=== PATIENT | female | born 1995 | race Caucasian/White ===

== ENCOUNTER 2018-06-30 12:25 | Emergency (ER) | payer OTHER ==
[2018-06-30 13:38] LABS: BASO # 0.1 10^3/uL (0.0-0.2); BASO % 0.7 % (0.0-1.0); EOS # 0.5 10^3/uL (0.0-0.50); EOS % 6.6 % (0.0-3.0); HEMATOCRIT 40.2 % (36.0-47.0); IMMATURE GRANULOCYTE % 0.3 % (0-3.0); LYMPH # 1.6 10^3/uL (1.5-6.5); MEAN CORPUSCULAR HEMOGLOBIN 27.4 pg (27.0-33.0); MEAN CORPUSCULAR HGB CONC 32.3 g/dl (32.0-36.5); MEAN CORPUSCULAR VOLUME 84.6 fl (80.0-96.0); MONO # 0.5 10^3/uL (0.0-0.8); MONO % 7.2 % (0.0-5.0); NEUTROPHILS # 4.3 10^3/uL (1.8-7.7); NEUTROPHILS % 62.2 % (36.0-66.0); PLATELET COUNT, AUTOMATED 270 10^3/uL (150-450); RED BLOOD COUNT 4.75 10^6/uL (4.00-5.40); WHITE BLOOD COUNT 6.9 10^3/uL (4.0-10.0)
[2018-06-30] MEDS: NS 500 ML IV (13:38)
[2018-06-30] MEDS: KETOROLAC 30 MG/ML VIAL (J1885) IV (13:38)
[2018-06-30 14:10] LABS: ERYTHROCYTE SEDIMENTATION RATE 21 mm/hr (0-20)
[2018-06-30 14:25] LABS: ANION GAP 8 MEQ/L (8-16); BLOOD UREA NITROGEN 10 MG/DL (7-18); C REACTIVE PROTEIN QUANTITATIV 0.41 MG/DL (0.00-0.30); CARBON DIOXIDE LEVEL 24 MEQ/L (21-32); CHLORIDE LEVEL 108 MEQ/L (98-107); FREE THYROXINE INDEX 3.3 % (1.3-4.8); GLOMERULAR FILTRATION RATE > 60.0 (>60); GLUCOSE, FASTING 73 MG/DL (70-100); POTASSIUM SERUM 4.3 MEQ/L (3.5-5.1); SODIUM LEVEL 140 MEQ/L (136-145); T UPTAKE 30 % (30-39); THYROID STIMULATING HORMONE 0.789 uIU/ML (0.358-3.740); THYROXINE (T4) 10.9 UG/DL (4.5-12.0)
[2018-06-30] MEDS ORDERED: ISOVUE-370 76% 100ML VIAL (Q9967) As Ordered (14:30)
== END 2018-06-30 15:20 | disposition home or self-care (01) ==
LOC: M ED 12:25
DX: M54.2 Cervicalgia (principal)
CPT/HCPCS: Q9967

== ENCOUNTER 2018-07-08 16:26 | Inpatient (IN) | payer OTHER ==
[2018-07-08 17:19] LABS: HEMATOCRIT 41.5 % (36.0-47.0); HEMOGLOBIN 13.4 g/dl (12.0-15.5); MEAN CORPUSCULAR HEMOGLOBIN 27.1 pg (27.0-33.0); MEAN CORPUSCULAR HGB CONC 32.3 g/dl (32.0-36.5); PLATELET COUNT, AUTOMATED 312 10^3/uL (150-450); RED BLOOD COUNT 4.94 10^6/uL (4.00-5.40); WHITE BLOOD COUNT 6.6 10^3/uL (4.0-10.0)
[2018-07-08 17:53] LABS: CONTROL LINE HCG INT CTR LINE PRESENT; HCG, SERUM QUALITATIVE NEGATIVE (NEGATIVE)
[2018-07-08 18:12] LABS: ACETAMINOPHEN LEVEL < 2.0 UG/ML (10.0-30.0); ALBUMIN 4.1 GM/DL (3.2-5.2); ALBUMIN/GLOBULIN RATIO 1.21 (1.00-1.93); ALKALINE PHOSPHATASE 93 U/L (45-117); ALT/SGPT 20 U/L (12-78); ANION GAP 12 MEQ/L (8-16); AST/SGOT 16 U/L (7-37); BILIRUBIN,DIRECT 0.1 MG/DL (0.0-0.2); BILIRUBIN,TOTAL 0.3 MG/DL (0.2-1.0); BLOOD UREA NITROGEN 13 MG/DL (7-18); CALCIUM LEVEL 9.5 MG/DL (8.5-10.1); CARBON DIOXIDE LEVEL 25 MEQ/L (21-32); CHLORIDE LEVEL 104 MEQ/L (98-107); CREATININE FOR GFR 0.81 MG/DL (0.55-1.30); ETHYL ALCOHOL (ETHANOL) < 0.003 % (0.000-0.010); GLOMERULAR FILTRATION RATE > 60.0 (>60); GLUCOSE, FASTING 102 MG/DL (70-100); LITHIUM LEVEL < 0.20 MEQ/L (0.60-1.20); POTASSIUM SERUM 3.9 MEQ/L (3.5-5.1); SALICYLATE LEVEL < 1.7 MG/DL (5.0-30.0); SODIUM LEVEL 141 MEQ/L (136-145); TOTAL PROTEIN 7.5 GM/DL (6.4-8.2)
[2018-07-08 19:24] LABS: AMPHETAMINES LEVEL URINE NEGATIVE (NEGATIVE); BARBITURATES URINE NEGATIVE (NEGATIVE); BENZODIAZEPINES URINE NEGATIVE (NEGATIVE); CANNABINOIDS URINE NEGATIVE (NEGATIVE); COCAINE METABOLITE URINE NEGATIVE (NEGATIVE); METHADONE URINE NEGATIVE (NEGATIVE); OPIATES URINE NEGATIVE (NEGATIVE); PHENCYCLIDINE URINE NEGATIVE (NEGATIVE)
[2018-07-08] MEDS ORDERED: traZODone 50 MG TAB PO (20:30)
[2018-07-08] MEDS ORDERED: ACETAMINOPHEN TAB 650MG DOSE (2X325MG) PO (20:30)
[2018-07-08] MEDS ORDERED: MOM 30ML SUSPENSION UDC PO (20:30)
[2018-07-09] MEDS: NICOTINE 21MG/24HR 1 EA TRANSDERMAL TD (08:50)
[2018-07-09] MEDS: QUEtiapine FUMARATE 50 MG TAB PO (20:10)
[2018-07-09] MEDS: CitaloPRAM (CeleXA) 10 MG TABLET PO (20:10)
[2018-07-10] MEDS: NICOTINE 21MG/24HR 1 EA TRANSDERMAL TD (08:11)
[2018-07-10] MEDS ORDERED: QUEtiapine FUMARATE 50 MG TAB PO (09:00)
[2018-07-10] MEDS ORDERED: CitaloPRAM (CeleXA) 10 MG TABLET PO (09:00)
[2018-07-10] MEDS: QUEtiapine FUMARATE 50 MG TAB PO (20:45)
[2018-07-10] MEDS: CitaloPRAM (CeleXA) 10 MG TABLET PO (20:46)
[2018-07-10] MEDS: MAALOX 30 ML SUSP *UDC PO (21:14)
[2018-07-11] MEDS: NICOTINE 21MG/24HR 1 EA TRANSDERMAL TD (09:00)
[2018-07-11] MEDS: PILL CRUSHER/CUTTER 1 EACH XX (20:36)
[2018-07-11] MEDS: CitaloPRAM (CeleXA) 10 MG TABLET PO (20:36)
[2018-07-11] MEDS: QUEtiapine FUMARATE 50 MG TAB PO (20:37)
[2018-07-11] MEDS ORDERED: BISACODYL 5 MG TAB PO (22:00)
[2018-07-12] MEDS: NICOTINE 21MG/24HR 1 EA TRANSDERMAL TD (09:00)
[2018-07-12] MEDS: DOCUSATE SODIUM 100 MG CAP PO (09:27)
[2018-07-12] MEDS: PILL CRUSHER/CUTTER 1 EACH XX (20:00)
[2018-07-12] MEDS: CitaloPRAM (CeleXA) 10 MG TABLET PO (20:00)
[2018-07-12] MEDS: QUEtiapine FUMARATE 50 MG TAB PO (20:01)
[2018-07-13] MEDS: DOCUSATE SODIUM 100 MG CAP PO (08:03)
[2018-07-13] MEDS: NICOTINE 21MG/24HR 1 EA TRANSDERMAL TD (08:04)
[2018-07-13] MEDS: hydrOXYzine 50 MG TAB PO (20:03)
[2018-07-13] MEDS: CitaloPRAM (CeleXA) 10 MG TABLET PO (20:42)
[2018-07-13] MEDS: PILL CRUSHER/CUTTER 1 EACH XX (20:43)
[2018-07-13] MEDS: QUEtiapine FUMARATE 50 MG TAB PO (20:43)
[2018-07-13] MEDS: traZODone 50 MG TAB PO (21:52)
[2018-07-14] MEDS: DOCUSATE SODIUM 100 MG CAP PO (09:00)
[2018-07-14] MEDS: NICOTINE 21MG/24HR 1 EA TRANSDERMAL TD (09:00)
[2018-07-14] MEDS: PILL CRUSHER/CUTTER 1 EACH XX (09:14)
[2018-07-14] MEDS: CitaloPRAM (CeleXA) 10 MG TABLET PO (20:08)
[2018-07-14] MEDS: hydrOXYzine 50 MG TAB PO (20:08)
[2018-07-15] MEDS: DOCUSATE SODIUM 100 MG CAP PO (08:19)
[2018-07-15] MEDS: NICOTINE 21MG/24HR 1 EA TRANSDERMAL TD (08:19)
[2018-07-15] MEDS: PILL CRUSHER/CUTTER 1 EACH XX (08:20)
[2018-07-15] MEDS: hydrOXYzine 50 MG TAB PO (08:52)
== END 2018-07-15 09:50 | disposition home or self-care (01) | DRG 885 ==
LOC: M ED 16:26 → M ED INP 20:17 → M PSY 21:55
DX: F31.9 Bipolar disorder, unspecified (principal); F44.9 Dissociative and conversion disorder, unspecified; F17.210 Nicotine dependence, cigarettes, uncomplicated; Z79.899 Other long term (current) drug therapy

== ENCOUNTER 2018-07-24 13:31 | Emergency (ER) | payer OTHER ==
[2018-07-24 14:53] LABS: HEMATOCRIT 38.3 % (36.0-47.0); HEMOGLOBIN 12.4 g/dl (12.0-15.5); MEAN CORPUSCULAR HEMOGLOBIN 27.3 pg (27.0-33.0); MEAN CORPUSCULAR HGB CONC 32.4 g/dl (32.0-36.5); MEAN CORPUSCULAR VOLUME 84.4 fl (80.0-96.0); PLATELET COUNT, AUTOMATED 217 10^3/uL (150-450); RED BLOOD COUNT 4.54 10^6/uL (4.00-5.40); RED CELL DISTRIBUTION WIDTH 13.3 % (11.5-14.5); WHITE BLOOD COUNT 5.6 10^3/uL (4.0-10.0)
[2018-07-24 15:06] LABS: AMPHETAMINES LEVEL URINE NEGATIVE (NEGATIVE); BARBITURATES URINE NEGATIVE (NEGATIVE); BENZODIAZEPINES URINE NEGATIVE (NEGATIVE); CANNABINOIDS URINE NEGATIVE (NEGATIVE); COCAINE METABOLITE URINE NEGATIVE (NEGATIVE); METHADONE URINE NEGATIVE (NEGATIVE); OPIATES URINE NEGATIVE (NEGATIVE); PHENCYCLIDINE URINE NEGATIVE (NEGATIVE)
[2018-07-24 15:32] LABS: CONTROL LINE HCG INT CTR LINE PRESENT; HCG, SERUM QUALITATIVE NEGATIVE (NEGATIVE)
[2018-07-24 15:36] LABS: ACETAMINOPHEN LEVEL < 2.0 UG/ML (10.0-30.0); ALBUMIN 3.9 GM/DL (3.2-5.2); ALBUMIN/GLOBULIN RATIO 1.39 (1.00-1.93); ALKALINE PHOSPHATASE 66 U/L (45-117); ALT/SGPT 21 U/L (12-78); ANION GAP 9 MEQ/L (8-16); AST/SGOT 14 U/L (7-37); BILIRUBIN,DIRECT 0.1 MG/DL (0.0-0.2); BILIRUBIN,TOTAL 0.3 MG/DL (0.2-1.0); BLOOD UREA NITROGEN 12 MG/DL (7-18); CALCIUM LEVEL 8.9 MG/DL (8.5-10.1); CARBON DIOXIDE LEVEL 25 MEQ/L (21-32); CHLORIDE LEVEL 107 MEQ/L (98-107); CREATININE FOR GFR 0.73 MG/DL (0.55-1.30); ETHYL ALCOHOL (ETHANOL) < 0.003 % (0.000-0.010); GLOMERULAR FILTRATION RATE > 60.0 (>60); GLUCOSE, FASTING 72 MG/DL (70-100); POTASSIUM SERUM 3.8 MEQ/L (3.5-5.1); SALICYLATE LEVEL < 1.7 MG/DL (5.0-30.0); SODIUM LEVEL 141 MEQ/L (136-145); THYROID STIMULATING HORMONE 0.918 uIU/ML (0.358-3.740); TOTAL PROTEIN 6.7 GM/DL (6.4-8.2)
== END 2018-07-24 16:46 | disposition home or self-care (01) ==
LOC: M ED 13:31
DX: F33.9 Major depressive disorder, recurrent, unspecified (principal); F17.200 Nicotine dependence, unspecified, uncomplicated; Z79.899 Other long term (current) drug therapy
CPT/HCPCS: G0480

== ENCOUNTER 2018-11-20 18:10 | Emergency (ER) | payer OTHER ==
[~2018-11-20] VITALS: Ht 154.9 cm; Wt 52.3 kg
[~2018-11-20 18:10] MED LIST: ACET30TAB PO; ARIP5TA PO; CELE10TA PO; HYDRO50TAB PO; IBUP-1022 PO; LITH300T2 PO; MAGICMW SS; NICO21PAT TD; TRAZO50TA PO
[2018-11-20] MEDS ORDERED: CITA10TA5 (18:17)
[2018-11-20] MEDS ORDERED: OXCA150T21 (18:17)
--- NOTE | 2018-11-20 19:10 | REP ---
CT Head without contrast HISTORY: Migraine headache COMPARISON: None There is no intraparenchymal hemorrhage, acute infarct, mass or midline shift. The ventricular system is normal in appearance. There is no extra cerebral collection. There is no fracture. The visualized sinuses are clear. IMPRESSION: There is no intracranial lesion. Electronically Signed by Greg Aguayo MD 11/20/2018 07:01 P
[2018-11-20] MEDS ORDERED: METOCLOPRAMIDE INJ 10MG/2ML VIAL (J2765) IV ONE (20:15)
[2018-11-20] MEDS ORDERED: NS 1,000 ML IV ONE (20:15)
[2018-11-20] MEDS ORDERED: diphenhydrAMINE INJ 50MG/ML VIAL (J1200) IV ONE (20:15)
[2018-11-20] MEDS ORDERED: KETOROLAC 30 MG/ML VIAL (J1885) IV ONE (20:15)
[2018-11-20 21:02] VITALS: BP 110/65
== END 2018-11-20 21:01 | disposition home or self-care (01) ==
LOC: M ED 18:10
DX: G43.909 Migraine, unspecified, not intractable, without status migrainosus (principal); Z87.891 Personal history of nicotine dependence; Z79.899 Other long term (current) drug therapy
CPT/HCPCS: 70450; 96374; 96375; 99284; J1200; J1885; J2765